=== PATIENT | female | born 1955 | race African-American/Black ===

== ENCOUNTER 2016-09-02 21:29 | Inpatient (IN) ==
[2016-09-02] MEDS ORDERED: hydrALAZINE 20 MG/1 ML VIAL ONE (22:17)
[2016-09-02] MEDS ORDERED: MORPHINE 2 MG/1 ML SYRINGE IV STA (22:21)
[2016-09-02] MEDS ORDERED: ASPIRIN 325 MG TABLET PO STA (22:21)
[2016-09-02] MEDS ORDERED: ONDANSETRON 4 MG/2 ML VIAL IV STA (22:21)
[2016-09-02] MEDS ORDERED: hydrALAZINE 20 MG/1 ML VIAL IV STA (22:25)
--- NOTE | 2016-09-02 22:26 | Emergency Department Note ---
IRyan Kasabria, am scribing for, and in the presence of, Juana Ceballos DO 22 :21. ITucker Debra, DO, personally performed the services described in this documentation, ascribed by Josephine Davis in my presence, and it is both accurate and complete 225 . Arrival - Arrival Chief Complaint: Chest Pain Stated Complaint: chest pain ED Nursing Triage Note: c/o left sided cp that hurts from her shoulder down to her knee. denies n/v, diaphoretic in triage, says she is sob at rest and exertion. Mode of Arrival: Ambulatory Limitations: No Limitations Source: Patient Time Seen by Provider: 09/02/16 21:47 - History of Present Illness HPI Narrative: This is a 61 y/o black female presenting to the ED with c/o chest pain, right shoulder pain that radiates down to her knees. She has some SOB but denies nausea, vomiting, diaphoresis, abdominal pain, back pain, and dysuria. Pt has a hernia to her right upper quadrant. Pt's blood pressure is elevated but she denies checking her pressure and states she has been out of her blood pressure medication for some time. She goes to [facility]. Pt has a cough and has not taken any OTC medications. Her PMHx consist of diabetes and HTN. Consistency: constant Severity: mild Allergies/Adverse Reactions: Allergies Allergy/AdvReac Type Severity Reaction Status Date / Time No Known Allergies Allergy Unverified 09/03/16 00:07 Review of System - Review of System 12 point system: reviewed and no additional remarkable complaints except as stated - Review of System Constitutional: Absent: chills, fever, weakness Eyes: Absent: vision change Head/Ears/Nose/Throat: Absent: earache, nasal drainage Respiratory: Present: cough. Absent: wheezing Cardiovascular: Present: chest pain, dyspnea on exertion Gastrointestinal: Absent: abdominal pain, nausea, vomiting, diarrhea Genitourinary female: Absent: dysuria Musculoskeletal: Absent: arm pain, back pain Skin: Absent: rash Neurological: Absent: headache, weakness, confusion, vertigo Psychiatric: Absent: anxiety Endocrine: Absent: fatigue Allergic/Immunologic: Absent: facial swelling Medical,Surgical,& Family Hx - Medical History Cardio: History of: Hypertension Endocrine: History of: Diabetes Mellitus (IDDM) - Social History Smoking Status: Never smoker Frequency of Alcohol Use: None Type of Drug Use: None Exam Vital Signs: Vital Signs Temperature 97.3 F L 09/02/16 21:48 Pulse Rate 93 H 09/02/16 21:48 Respiratory Rate 20 09/02/16 21:48 Blood Pressure 236/88 09/02/16 21:48 O2 Sat by Pulse Oximetry 94 L 09/02/16 21:33 - General General appearance: alert, in no apparent distress, obese - Head Head exam: Present: atraumatic, normocephalic, normal inspection - Eye Eye exam: Present: normal appearance, PERRL, EOMI - ENT ENT exam: Present: normal exam, normal oropharynx, mucous membranes moist, TM's normal bilaterally, normal external ear exam - Neck Neck exam: Present: normal inspection, full ROM, trachea midline. Absent: tenderness - Chest Chest inspection: Present: normal inspection, symmetric chest wall rise. Absent : tenderness - Respiratory Respiratory exam: Present: rales (bilaterally ). Absent: normal lung sounds bilaterally - Cardiovascular Cardiovascular exam: Present: regular rate, normal rhythm, normal heart sounds - Abdominal Exam Abdominal exam: Present: soft, normal bowel sounds, hernia (midline; easily reducible ). Absent: distention, tenderness - Extremities Exam Extremities exam: Present: full ROM, normal capillary refill, pedal edema (+1). Absent: tenderness, calf tenderness - Back Exam Back exam: Present: normal inspection, full ROM. Absent: tenderness - Neurological Exam Neurological exam: Present: alert, oriented X3, CN II-XII intact, normal gait, reflexes normal - Psychiatric Psychiatric exam: Present: normal affect, normal mood - Skin Skin exam: Present: warm, dry, intact, normal color. Absent: diaphoresis Course Course Narrative: spoke with DR Nuñez who will admit pt Results - Labs CBC & BMP: 09/02/16 21:56 09/02/16 21:56 Disposition Clinical Impression: Atypical chest pain, CHF (congestive heart failure) Case discussed with: patient, patient's family Disposition: Still a Patient Condition: Stable Time of Disposition: 01:22
--- NOTE | 2016-09-02 22:27 | EKG Report ---
Stationary ECG Study [facility] ER Test Date: 09/02/2016 9:43:48 PM Pat Name: ALIZA GARRIDO Department: Room: Gender: F Science Professor: Aquiles : 1955 Requested by: Juana Ceballos Order Number: [id number] Reading MD: ANDRE VELASQUEZ Intervals [place] Rate: 85 P: 74 NM: 166 QRS: 45 QRSD: 92 T: 90 QT: 371 QTc: 413 Interpretive Statements SINUS RHYTHM LEFT ATRIAL ABNORMALITY Electronically Signed On 09-04-16 18:50:29 CDT by ANDRE VELASQUEZ [email or web address]
[2016-09-02] MEDS ORDERED: ONDANSETRON 4 MG/2 ML VIAL ONE (22:33)
[2016-09-02] MEDS ORDERED: MORPHINE 2 MG/1 ML SYRINGE ONE (22:33)
[2016-09-02] MEDS ORDERED: ASPIRIN 325 MG TABLET ONE (22:33)
--- NOTE | 2016-09-02 22:38 | XRay Report ---
XR chest 1V portable Indication: Chest pain Comparison: None Technique: Single frontal view of the chest Findings: Moderate cardiomegaly. Hazy opacification within the bilateral lower lungs may reflect early consolidative process such as pulmonary edema or pneumonia. Small bilateral pleural fluid suspected. Osseous and surrounding soft tissue structures demonstrate no acute abnormality. IMPRESSION: As above. PROCEDURE INTERPRETED AT [facility] DEPARTMENT OF RADIOLOGY Final Report Signed by: Dr Jaylen Fontanez
[2016-09-02 22:42] LABS: Basophils % 0.2 % (0.0-0.8); Eosinophils # 0.1 10*3/uL (0.0-0.87); Eosinophils % 0.7 % (0.00-10.9); Hemoglobin 12.3 GM/DL (12.0-16.0); Immature Granulocytes % 0.4 %; Immature Granulocytes Absolute 0.03 #; Lymphocytes # 2.6 10*3/uL (1.4-4.0); Lymphocytes % 32.2 % (21.3-54.2); Mean Corpuscular HGB Conc 32.4 GM/DL (32-36); Mean Corpuscular Hemoglobin 30 PG (27-34); Mean Corpuscular Volume 92.2 FL (87-102); Monocytes # 0.4 10*3/uL (0.11-0.8); Monocytes % 4.6 % (1.7-12.7); Neutrophils # 5.1 10*3/uL (1.4-7.4); Neutrophils % 61.9 % (38.7-73.9); Platelet Count 220 T/CUMM (130-400); Red Blood Count 4.12 MC/CUMM (3.8-5.5); Red Cell Distribution Width 14.3 % (9.3-17.3); White Blood Count 8.2 T/CUMM (4-12)
[2016-09-02 22:47] LABS: PT Patient Result 10.3 SECS; Partial Thromboplastin Time 29.1 SECS (0-40)
[2016-09-02 22:56] LABS: Alanine Aminotransferase 19 U/L (13-56); Albumin 3.2 G/DL (3.4-5.0); Alkaline Phosphatase 93 U/L (45-117); Aspartate Amino Transferase 16 U/L (0-37); Bilirubin,Total < 0.39 MG/DL (0.2-1.0); Blood Urea Nitrogen 18 MG/DL (7-18); Calcium 9.2 MG/DL (8.5-10.1); Glucose 199 MG/DL (74-106); Osmolality,Calculated 297.6 MOS/KG (273-304); Potassium 3.7 MMOL/L (3.5-5.1); Sodium 146 MMOL/L (136-145); Total Protein 7.1 G/DL (6.4-8.3)
[2016-09-02] MEDS ORDERED: cloNIDine 0.1 MG TABLET PO STA (23:11)
[2016-09-02] MEDS ORDERED: cloNIDine 0.1 MG TABLET ONE (23:13)
[2016-09-02] MEDS ORDERED: FUROSEMIDE 40 MG/4 ML VIAL IV STA (23:33)
[2016-09-02] MEDS ORDERED: FUROSEMIDE 100 MG/10 ML VIAL ONE (23:44)
[2016-09-03] MEDS ORDERED: hydrALAZINE 20 MG/1 ML VIAL ONE (00:09)
[2016-09-03] MEDS ORDERED: hydrALAZINE 20 MG/1 ML VIAL IV STA (00:15)
[2016-09-03 00:45] LABS: Apearance,Urine CLEAR (Clear); Bilirubin,Urine Negative (Negative); Blood, Urine Negative (Negative); Glucose,Urine (UA) Negative (Negative); Ketones,Urine Negative (Negative); Nitrite,Urine Negative (Negative); Protein,Urine Negative; RBC,Urine <1 /HPF (0-4); Squamous Epithelial Cell,Urine Occasional /HPF (0-10); Urine Color Colorless (Yellow); Urine Specific Gravity 1.003 (1.001-1.035); Urine Urobilinogen < 2.0 EU/DL (0.2-1.0); WBC,Urine <1 /HPF (0-6)
[2016-09-03] MEDS ORDERED: ACETAMINOPHEN 325 MG TABLET PO PRN (00:49)
[2016-09-03] MEDS ORDERED: hydrALAZINE 20 MG/1 ML VIAL IV PRN (00:49)
[2016-09-03] MEDS ORDERED: ONDANSETRON 4 MG/2 ML VIAL IV PRN (00:49)
--- NOTE | 2016-09-03 02:06 | Hospitalist History & Physical ---
Assessment and Plan (1) Pulmonary edema Status: Acute Assessment and plan: Admitted to telemetry Serial cardiac enzymes Start Lasix and Aldactone Resume blood pressure medications Consider cardiology consult Follow-up echocardiogram Current Visit: Yes Qualifiers: Chronicity: acute Qualified Code(s): J81.0 - Acute pulmonary edema (2) Uncontrolled hypertension Status: Acute Assessment and plan: Patient has been noncompliant with home medications. She is unable to name what meds she was supposed to be on. Given her history of diabetes have started her on Diovan with hydrochlorothiazide. Hydralazine is ordered as needed. 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 Kerr is a 61 year old female presenting to the ED with c/o chest pain, right shoulder pain that radiates down to her knees. She has some SOB but denies nausea, vomiting, diaphoresis, abdominal pain, back pain, and dysuria. Symptoms began Tuesday morning. It occurs at rest and is waxing and waning. Rated a 6-7 out of 10 in intensity. Pt's blood pressure is elevated but she denies checking her pressure and states she has been out of her blood pressure medication for some time- approx 2 months. She goes to [facility]. Her PMHx consist of diabetes and HTN. She quit smoking 2 months ago. Allergies Allergy/AdvReac Type Severity Reaction Status Date / Time No Known Allergies Allergy Unverified 09/03/16 00:07 Medical,Surgical,& Family Hx - Medical History Cardio: History of: Hypertension Endocrine: History of: Diabetes Mellitus (IDDM) - Family History Family History: Reports;: Family Diabetes, Family Hypertension - Social History Smoking Status: Former smoker Have you smoked in the last 12 months: No Frequency of Alcohol Use: None Type of Drug Use: None Marital Status: Single Lives With:: Alone Functional capacity: independent ambulation 12 point system: reviewed and no additional remarkable complaints except as stated - Constitutional Constitutional: Present: as per HPI - Cardiovascular Cardiovascular: Present: chest pain at rest, orthopnea, PND - Respiratory Respiratory: Present: cough, dyspnea Exam - Constitutional Vitals: Period Temp Pulse Resp BP Sys/Moore Pulse Ox Last 24 Hr 82 19 151/89 100 Exam: Constitutional System: Mild distress. No tremulousness. Head: Normocephalic, atraumatic. Ears, Nose and Throat System: No pain or tenderness. No epistaxis or discharge Eyes System: Pupils equal, round, and reactive. Extraocular muscles intact. Neck: Supple, without adenopathy, No jugular venous distention. No thyromegaly, neck mass, or prior surgery apparent. Respiratory System: Chest clear to auscultation. Cardiovascular System: Heart with regular rate and rhythm. No murmur. GI System: Abdomen soft, nontender. Normo active bowel sounds present. Ventral hernia noted without incarceration. Musculoskeletal System: limbs with mild pitting edema. Full distal pulses. Neurological System: No discernable sensory deficit. No aphasia Psychiatric System: Conversation is rational Results - Labs CBC & BMP: 09/02/16 21:56 09/02/16 21:56 Lab Results: I have reviewed the past 24 hour labs - Diagnostic Findings Procedure: Chest x-ray: image reviewed by me, report reviewed by me
[2016-09-03] MEDS ORDERED: GLUCAGON 1 MG VIAL IM PRN (02:10)
[2016-09-03] MEDS ORDERED: DEXTROSE 50% 25 GM/50 ML VIAL IV PRN (02:10)
[2016-09-03] MEDS: METOPROLOL TARTRATE 25 MG TABLET PO SCH ×3 (03:01→21:05)
[2016-09-03 05:14] LABS: Free T4 (Free Thyroxine) 1.18 NG/DL (0.76-1.46); Risk Ratio 5.83; Thyroid Stimulating Hormone 1.92 uIU/ml (0.358-3.74)
[2016-09-03 05:18] LABS: Troponin I Only 0.048 NG/ML (0.00-0.045)
[2016-09-03 07:34] LABS: Troponin I Only 0.042 NG/ML (0.00-0.045)
--- NOTE | 2016-09-03 09:42 | Cardiology Consult Note ---
Assessment and Plan - Time spent with patient Time spent with patient: Greater than 30 minutes (due to assessment, plan, and documentation) Time spent discussing smoking cessation with patient: 3 to 10 minutes (1) Atypical chest pain Status: Acute Assessment and plan: She has had flat troponins and normal EKG. She has some typical and some atypical symptoms of angina, however she has multiple risk factors for coronary artery disease. Will discuss with Dr. Barajas. Patient will need risk factor stratification. Further recommendations to follow by Dr. Barajas. Current Visit: Yes (2) Uncontrolled hypertension Status: Chronic Assessment and plan: Better controlled today but still suboptimal. On admission BP was 236/88. This morning her BP was 140/67. She has been started on Diovan HCT 160mg/12.5mg PO daily as well as Metoprolol 25mg PO BID. We will continue this current regimen, however she may require additional adjustments to further optimize her blood pressure. Current Visit: Yes (3) Pulmonary edema Status: Acute Assessment and plan: Chest x-ray yesterday consistent with pulmonary edema. She is receiving Lasix 40mg IV BID, Aldactone 12.5mg PO BID. Currently breathing comfortably and is on O2 via NBP. Current Visit: Yes Qualifiers: Chronicity: acute Qualified Code(s): J81.0 - Acute pulmonary edema (4) Dyslipidemia Status: Acute Assessment and plan: Ms. Kerr denies a past history of high cholesterol, however on admission her triglycerides were found to be 295, cholesterol 274, LDL 179, HDL 47. We will start Ms. Kerr on a daily statin and fish oil BID. Current Visit: Yes (5) DM2 (diabetes mellitus, type 2) Status: Chronic Assessment and plan: She is currently on sliding scale insulin. Hospital medicine following. Current Visit: Yes Qualifiers: Diabetes mellitus complication status: without complication Diabetes mellitus usp insulin use: with usp use Qualified Code(s): E11.9 - Type 2 diabetes mellitus without complications; Z79.4 - senior living (current) use of insulin (6) Noncompliance Status: Chronic Assessment and plan: Has been out of medications x 2 months. Current Visit: Yes (7) Former smoker Status: Chronic Assessment and plan: Quit 2 months ago. Current Visit: Yes (8) Obesity Status: Chronic Current Visit: Yes (9) Sedentary lifestyle Status: Chronic Current Visit: Yes History of Present Illness - Data of Consult Patient: new to practice Consult date: 09/03/16 Requesting Physician: James Sheriff - Consult Narrative Reason for consult: atypical CP, uncontrolled HTN History of present illness: Ms. Kerr is a 61 year old female who has never seen a public affairs director. She reports she has no PCP, she just goes to a walk in clinic in [place], [place]. her home medicines are not listed. She does not know what she takes and did not bring the bottles but she has been out of her medicines for the last 2 months. She is noncompliant. She has a history of hypertension, diabetes, former smoker, noncompliance, umbilical hernia. She has risk factors significant for: Hypertension, diabetes, dyslipidemia, former smoker, obesity, sedentary lifestyle. She tells me she quit smoking 2 months ago but smoked approximately 1 pack per day for 40 years. Her mother and sister have a history of hypertension. To her knowledge, no one in her family has a history of heart disease or prior cardiac stents or CABG. She presented to the emergency room last night with complaints of shortness of breath, left-sided chest pain, and pain from her left shoulder down her arm and down her left leg to her knee. She describes this pain in her left side as a burning sensation. Her left chest wall and left arm pain is nonreproducible. She reports her left thigh feels like "it has fever in it." Her left leg is very tender to palpation. She tells me all of this began Tuesday morning when she awoke with shortness of breath. She also reports a tightness and squeezing sensation across her upper abdomen and is mildly tender upon palpation of her upper abdomen, especially the epigastric region. She tells me she is also has some bilateral lower extremity edema within the last week. She reports prior to this she has experienced no chest pain on exertion but does report dyspnea on exertion for the last 6 months. She also reports having frequent constipation and headaches recently. An echocardiogram has been ordered. Her BNP on admission was 294. She has had flat troponins. Creatinine is 1.1. Lipid panel revealed triglycerides 295, cholesterol 274, LDL 179, HDL 47. Her potassium was 3.7 and TSH was normal. EKG showed normal sinus rhythm. Dr. Barajas to follow with further recommendations. CC: Caridad Chaudhary MD - Home Medications and Allergies Allergies/Adverse Reactions: Allergies Allergy/AdvReac Type Severity Reaction Status Date / Time No Known Allergies Allergy Unverified 09/03/16 00:07 Review of systems: - Constitutional: Present: fatigue, As per HPI. Absent: anorexia, chills, daytime sleepiness, excessive sweating, fever(s), frequent falls, headache(s), increased appetite, lethargy, malaise, night sweats, stops breathing during sleep, weakness, weight gain, weight loss. - EENT Eyes: Present: Left eye cataract and decreased vision in left eye. As per HPI. Absent: blurry vision, diplopia, loss of vision Ears: Present: As per HPI. Absent: decreased hearing, ear discharge, ear pain Nose, mouth and throat: Present: As per HPI. Absent: dysphagia, epistaxis, headache(s), hoarseness, lip swelling, nasal congestion, neck mass, neck pain, sinus pressure, sore throat, throat swelling, tongue swelling, vertigo - Cardiovascular: Present: chest pain at rest, dyspnea, dyspnea on exertion, edema, radiating jaw, neck or arm pain, as per HPI. Absent: chest pain with activity, claudication, diaphoresis, lightheadedness, orthopnea, palpitations, PND - Respiratory: Present: dyspnea, dyspnea on exertion, as per HPI. Absent: cough , hemoptysis, wheezing, snoring, pain on inspiration - Gastrointestinal: Present:abdominal pain, constipation, As per HPI. Absent: bloating, change in bowel habits, diarrhea, heartburn, hematemesis, hematochezia , loose stools, melena, nausea, vomiting - Genitourinary: Present: As per HPI. Absent: difficulty urinating, dysuria, flank pain, hematuria, nocturia, urinary frequency, urinary incontinence - Musculoskeletal: Present: Left leg pain as per HPI. Absent: arthralgias, back pain, joint swelling, limited range of motion, muscle cramps, muscle weakness, myalgias - Neurological: Present: paresthesias, As per HPI. Absent: abnormal gait, abnormal speech, behavioral changes, confusion, convulsions, disequilibrium, dizziness, focal weakness, frequent falls, headache(s), memory loss, numbness, radicular pain, syncope, tremor(s) - Psychiatric: Present: As per HPI. Absent: anxiety, confusion, depression, panic attacks - Endocrine: Present: As per HPI. Absent: cold intolerance, fatigue, heat intolerance, polydipsia, polyphagia - Hematologic/Lymphatic: Present: As per HPI. Absent: easy bleeding, easy bruising, lymphadenopathy Medical,Surgical,& Family Hx - Medical History Cardio: History of: Hypertension Endocrine: History of: Diabetes Mellitus (IDDM) Gastrointestinal: History of: GI Problems (Hernia) - Surgical History Cardiac Surgeries: Patient Denies: Cardiac Catheterization Thoracic Surgeries: Patient denies;: Lobectomy Neurologic Surgeries: Patient denies: Neurologic Surgery Reproductive Surgeries: Surgical HX of;: Section (In 1976 & 1977), Hysterectomy (In 2013) - Family History Family History: Reports;: Family Diabetes, Family Hypertension - Social History Smoking Status: Former smoker (Quit 2 months ago) Have you smoked in the last 12 months: Yes (Smoked approximately 1 pack per day for approximately 40 years) Time spent discussing smoking cessation with patient: 3 to 10 minutes Frequency of Alcohol Use: None Type of Drug Use: None Marital Status: Single Functional capacity: independent ambulation Physical Examination Vital Signs Temp Pulse Resp BP Pulse Ox 97.3 F L 93 H 20 236/88 94 L 09/02/16 21:33 09/02/16 21:33 09/02/16 21:33 09/02/16 21:33 09/02/16 21:33 Other: General: Present: Appears Well, No Apparent Distress. Pleasant and cooperative. Appears comfortable. HEENT: Present: PERRL, Normocephaly, atraumatic. Mucus Membranes Moist. No jaundice noted. Conjunctiva moist and clear, sclerae anicteric Neck: Present: Supple Neck, Midline Trachea, No Masses Cardiac: Present: Regular Rate and Rhythm, No Murmur Lungs: Present: Decreased breath sounds bilateral bases. Neuro: Present: Awake, alert, and oriented x3. Moves all extremities well without hemiparesis or paralysis. Grossly Intact. Absent: Resting Tremor, Essential Tremor Abdomen: Present: Soft, Active Bowel Sounds, No Masses, tenderness to the right upper, left upper, and epigastric region of the abdomen, nondistended. No abdominal bruit or thrill noted. Skin: Present: Clear. Absent: Rash, No skin breakdown. Musculoskeletal: Present: No Fluid Collection, No Pain, Normal Range of Motion Extremities: Present: Normal Gait, No Clubbing, No Cyanosis, Upper Extr. Pulses 2+, Lower Extr. Pulses 2+, 1+ pitting edema. Capillary refill less than 3 seconds. Result/EKG - Labs CBC & BMP: 09/02/16 21:56 09/02/16 21:56 Lab Results: I have reviewed the past 24 hour labs Labs: Laboratory Results - last 24 hr 09/03/16 09/03/16 09/03/16 03:34 03:34 06:35 POC Glucose Total Creatine Kinase 132 157 CK-MB (CK-2) 1.6 1.8 Troponin I 0.048 H D 0.042 Triglycerides 295 H Cholesterol 274 H LDL Cholesterol 179.0 VLDL Cholesterol 59.0 HDL Cholesterol 47 Heart Disease Risk Ratio 5.83 Free T4 1.18 TSH 3rd Generation 1.920 09/03/16 07:47 POC Glucose 165 H Total Creatine Kinase CK-MB (CK-2) Troponin I Triglycerides Cholesterol LDL Cholesterol VLDL Cholesterol HDL Cholesterol Heart Disease Risk Ratio Free T4 TSH 3rd Generation - EKG EKG results: interpreted by me, sinus rhythm
[2016-09-03] MEDS: INSULIN LISPRO 100 UNIT/ML SUBCUT SCH ×4 (14:11→21:06)
[2016-09-03] MEDS: FUROSEMIDE 40 MG/4 ML VIAL IV SCH ×2 (14:12→17:11)
[2016-09-03] MEDS: SPIRONOLACTONE 25 MG TABLET PO SCH ×2 (14:13→21:03)
[2016-09-03] MEDS: VALSARTAN/HCTZ 160-12.5 MG TABLET PO SCH (14:13)
[2016-09-03] MEDS: ENOXAPARIN 40 MG/0.4 ML SYRINGE SUBCUT SCH (14:14)
[2016-09-03] MEDS: OMEGA 3 ACID ETHYL ESTERS 1 GM CAPSULE PO SCH ×2 (14:14→21:04)
[2016-09-03] MEDS: ACETAMINOPHEN 325 MG TABLET PO SCH ×2 (14:14→21:04)
[2016-09-03] MEDS: PANTOPRAZOLE 40 MG TABLET PO SCH (14:14)
[2016-09-03] MEDS: traMADol 50 MG TABLET PO SCH ×2 (14:15→21:04)
[2016-09-03] MEDS: GABAPENTIN 100 MG CAPSULE PO SCH ×2 (14:16→21:05)
--- NOTE | 2016-09-03 14:34 | ECHO Report ---
Erlinda Kerr Exam Date: 09/03/2016 09:28 Referring Physician: Technologist: Sugey Baptiste RDCS Age: 61 Ht (in): 62 Wt (lb): 220 Gender: F Exam Location: [facility] Echo Indications: Acute pulmonary edema, Chest pain, unspecified, Essential (primary) hypertension, Shortness of breath, IDDM BP: 140 / 67 HR: 80 Rhythm: Sinus Technical Quality: Good IMPRESSIONS Severe left ventricular hypertrophy. Left ventricular ejection fraction is estimated at 50-60%. The right atrium is mildly enlarged. Moderately increased left atrial size. Mild mitral valve regurgitation. Aortic valve sclerosis without stenosis or regurgitation. Trace to mild tricuspid valve regurgitation. Tricuspid regurgitation velocities suggest a PAP of 49 mmHg. Mild pulmonary valve regurgitation. Normal pericardium, trvial pericardial effusion. MEASUREMENTS (Male / Female) Normal Values 2D ECHO LV Diastolic Diameter PLAX 4.7 cm 4.2 - 5.9 / 3.9 - 5.3 cm LV Systolic Diameter PLAX 3.5 cm LV Fractional Shortening PLAX 26.9 % IVS Diastolic Thickness 1.9 cm 0.6 - 1.0 / 0.6 - 0.9 cm LVPW Diastolic Thickness 1.9 cm 0.6 - 1.0 / 0.6 - 0.9 cm RV Internal Dim ED PLAX 2.7 cm Aortic Root Diameter 3.2 cm LA Systolic Diameter LX 5.2 cm 3.0 - 4.0 / 2.7 - 3.8 cm DOPPLER TR Peak Velocity 312.0 cm/s TR Peak Gradient 38.9 mmHg FINDINGS Left Ventricle Normal left ventricular cavity size. Severe left ventricular hypertrophy. Left ventricular ejection fraction is estimated at 50-60%. Right Ventricle The right ventricle is normal in size and function. Right Atrium The right atrium is mildly enlarged. Left Atrium Moderately increased left atrial size. Mitral Valve Morphologically normal mitral valve. Mild mitral valve regurgitation. Aortic Valve Aortic valve sclerosis without stenosis or regurgitation. Tricuspid Valve Morphologically normal tricuspid valve. Trace to mild tricuspid valve regurgitation. Tricuspid regurgitation velocities suggest a PAP of 49 mmHg. Pulmonic Valve Morphologically normal pulmonic valve. Mild pulmonary valve regurgitation. Pericardium Normal pericardium, trvial pericardial effusion Aorta Normal ascending aorta dimension. Javier Barajas MD (Electronically Signed) Final Date: 03 September 2016 14:33
[2016-09-03] MEDS: ZALEPLON 5 MG CAPSULE PO PRN (21:04)
[2016-09-03] MEDS: PRAVASTATIN 40 MG TABLET PO SCH (21:04)
[2016-09-04] MEDS: VALSARTAN/HCTZ 160-12.5 MG TABLET PO SCH (08:22)
[2016-09-04] MEDS: OMEGA 3 ACID ETHYL ESTERS 1 GM CAPSULE PO SCH ×2 (08:22→21:14)
[2016-09-04] MEDS: PANTOPRAZOLE 40 MG TABLET PO SCH (08:22)
[2016-09-04] MEDS: SPIRONOLACTONE 25 MG TABLET PO SCH ×2 (08:23→21:15)
[2016-09-04] MEDS: GABAPENTIN 100 MG CAPSULE PO SCH ×3 (08:23→21:16)
[2016-09-04] MEDS: METOPROLOL TARTRATE 25 MG TABLET PO SCH (08:23)
[2016-09-04] MEDS: ASPIRIN CHEW 81 MG TABLET PO SCH (08:24)
[2016-09-04] MEDS: ACETAMINOPHEN 325 MG TABLET PO SCH ×2 (08:24→21:14)
[2016-09-04] MEDS: traMADol 50 MG TABLET PO SCH ×2 (08:24→21:15)
[2016-09-04] MEDS: FUROSEMIDE 40 MG/4 ML VIAL IV SCH ×2 (08:28→17:15)
[2016-09-04] MEDS: INSULIN LISPRO 100 UNIT/ML SUBCUT SCH ×4 (08:30→21:16)
--- NOTE | 2016-09-04 14:10 | Cardiology Progress Note ---
Assessment and Plan (1) Diastolic heart failure Status: Acute Assessment and plan: Plan/recommendation: The patient's diastolic heart failure is better. The echo revealed 3+ LVH and normal left ventricular ejection fraction. Her blood pressures not quite to goal. Will switch the metoprolol to carvedilol 12.5 mg p.o. twice daily and add amlodipine 5 mg p.o. daily. Hopefully can get her blood pressure control. Her cardiac isoenzymes are negative so I doubt that her left chest pain is ACS. It probably is chest wall pain are related to hypertensive cardiovascular disease. Her left leg pain is of unknown etiology. Once she is out/discharged, she could get a stress test with Cardiolite, Outpatient at [facility]. The above was discussed with the patient. She voiced understanding and agrees with the plan. Current Visit: Yes (2) Hypertensive heart disease Status: Acute Current Visit: Yes (3) Suspected sleep apnea Status: Acute Current Visit: Yes (4) Atypical chest pain Status: Acute Current Visit: Yes (5) Dyslipidemia Status: Acute Current Visit: Yes (6) Pulmonary edema Status: Acute Current Visit: Yes Qualifiers: Chronicity: acute Qualified Code(s): J81.0 - Acute pulmonary edema (7) DM2 (diabetes mellitus, type 2) Status: Chronic Current Visit: Yes Qualifiers: Diabetes mellitus complication status: without complication Diabetes mellitus skilled nursing insulin use: with skilled nursing use Qualified Code(s): E11.9 - Type 2 diabetes mellitus without complications; Z79.4 - retirement (current) use of insulin (8) Former smoker Status: Chronic Current Visit: Yes (9) Noncompliance Status: Chronic Current Visit: Yes (10) Obesity Status: Chronic Current Visit: Yes (11) Sedentary lifestyle Status: Chronic Current Visit: Yes (12) Uncontrolled hypertension Status: Chronic Current Visit: Yes Cardiology - PN: Subj Interval history: No chest pain. Less shortness of breath. Left leg still has some pain, but is better. Exam (Progress Note) - Constitutional Vitals: Period Temp Pulse Resp BP Sys/Moore Pulse Ox Last 24 Hr 96.8 F-99 F 62-80 16-22 133-179/63-125 89-100 Exam: HEENT: Pupils equal, reactive to light and accommodation Neck: NoJVD or bruit Lungs clear to auscultation Heart: Regular rhythm rate with normal S1 and S2. Apical S4, 1/6 systolic ejection murmur along left lower sternal border. Abdomen: No hepatosplenomegaly Spine/extremities: No clubbing, cyanosis, or edema Neuro: Nonfocal Psych: No depression or anxiety Less left chest wall pain Result/EKG - Labs CBC & BMP: 09/02/16 21:56 09/02/16 21:56 Lab Results: I have reviewed the past 24 hour labs Labs: Laboratory Results - last 24 hr 09/03/16 09/03/16 09/04/16 15:37 20:18 07:13 POC Glucose 259 H 207 H 201 H 09/04/16 11:44 POC Glucose 172 H - EKG EKG results: interpreted by me Quality Measures - VTE Deep Vein Thrombosis/Pulmonary Embolism Present on Admission: No Specialty Discharge - Follow Up or Referrals Follow up with: [facility] [Other] (In about 3-6 weeks, to follow-up on treatment of hypertensive heart disease, hypertension, multiple risk factors) Javier Barajas MD [Physician] - (No scheduled follow-up with me. can set up for an outpatient MPI/treadmill/possible Lexiscan to be done at [facility] outpatient in the next week or 2[ not at [facility]]. Kimberly Yancey, nurse practitioner, will supervise the treadmill. I will read the MPI.)
--- NOTE | 2016-09-04 14:32 | Hospitalist Progress Note ---
Assessment and Plan (1) Atypical chest pain Status: Acute Assessment and plan: Patient has multiple risk factors for CAD. Cardiac enzymes are negative so far. Plan Continue with serial cardiac enzymes Continue with current regime For out pt stress test D-dimer if positive-CT with PTE protocol Current Visit: Yes (2) DM2 (diabetes mellitus, type 2) Status: Chronic Assessment and plan: we will start Metformin 500mg bid, get HbA1c level and continue to monitor closely DM teaching Current Visit: Yes Qualifiers: Diabetes mellitus complication status: without complication Diabetes mellitus fdc insulin use: with fdc use Qualified Code(s): E11.9 - Type 2 diabetes mellitus without complications; Z79.4 - petroleum terminal plant operator (current) use of insulin (3) Uncontrolled hypertension Status: Chronic Assessment and plan: better controlled, continue to monitor Current Visit: Yes (4) Pulmonary edema Status: Acute Assessment and plan: Chest x-ray on 09/02 was consistent with pulmonary edema.Continue with diuretics , repeat CXR in am. Current Visit: Yes Qualifiers: Chronicity: acute Qualified Code(s): J81.0 - Acute pulmonary edema (5) Dyslipidemia Status: Acute Assessment and plan: continue with statin and fish oil Current Visit: Yes (6) Noncompliance Status: Chronic Assessment and plan: Has been out of medications x 2 months. 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 She currently denies a history of chest pain, SOB, tightness. Exam - Constitutional Vitals: Period Temp Pulse Resp BP Sys/Moore Pulse Ox Last 24 Hr 96.8 F-99 F 62-80 16-22 133-179/63-125 89-100 General appearance: no acute distress, over weight - Head Head exam: Present: normal inspection - Respiratory Respiratory exam: Present: clear to auscultation bilaterally - Cardiovascular Cardiovascular exam: Present: regular rate and rhythm - GI/Abdominal GI/Abdominal exam: Present: normal bowel sounds - Extremities Exam Extremities exam: Present: normal inspection Results - Labs CBC & BMP: 09/02/16 21:56 09/02/16 21:56 Lab Results: I have reviewed the past 24 hour labs Quality Measures - VTE Deep Vein Thrombosis/Pulmonary Embolism Present on Admission: No Specialty Discharge - Follow Up or Referrals Follow up with: [facility] [Other] (In about 3-6 weeks, to follow-up on treatment of hypertensive heart disease, hypertension, multiple risk factors) Javier Barajas MD [Physician] - (No scheduled follow-up with me. can set up for an outpatient MPI/treadmill/possible Lexiscan to be done at [facility] outpatient in the next week or 2[ not at [facility]]. Kimberly Yancey, nurse practitioner, will supervise the treadmill. I will read the MPI.)
[2016-09-04] MEDS: amLODIPine 10 MG TABLET PO SCH (16:08)
[2016-09-04] MEDS: ENOXAPARIN 40 MG/0.4 ML SYRINGE SUBCUT SCH (16:09)
[2016-09-04] MEDS: metFORMIN 500 MG TABLET PO SCH (16:19)
[2016-09-04 16:31] LABS: Troponin I Only 0.033 NG/ML (0.00-0.045)
[2016-09-04] MEDS: CARVEDILOL 12.5 MG TABLET PO SCH (21:15)
[2016-09-04] MEDS: PRAVASTATIN 40 MG TABLET PO SCH (21:15)
[2016-09-04] MEDS: MORPHINE 2 MG/1 ML SYRINGE IV PRN (22:42)
[2016-09-04] MEDS: ZALEPLON 5 MG CAPSULE PO PRN (22:43)
[2016-09-05] MEDS: MORPHINE 2 MG/1 ML SYRINGE IV PRN (04:47)
[2016-09-05 05:27] LABS: Basophils % 0.1 % (0.0-0.8); Eosinophils # 0.1 10*3/uL (0.0-0.87); Eosinophils % 1.3 % (0.00-10.9); Hematocrit 34.4 VOL% (35.7-47.0); Hemoglobin 11.2 GM/DL (12.0-16.0); Immature Granulocytes % 0.4 %; Immature Granulocytes Absolute 0.03 #; Lymphocytes # 2.1 10*3/uL (1.4-4.0); Mean Corpuscular HGB Conc 32.6 GM/DL (32-36); Mean Corpuscular Hemoglobin 30 PG (27-34); Mean Corpuscular Volume 91.5 FL (87-102); Mean Platelet Volume 10.5 FL (9.6-12.0); Monocytes # 0.4 10*3/uL (0.11-0.8); Monocytes % 6.2 % (1.7-12.7); Neutrophils # 4.5 10*3/uL (1.4-7.4); Platelet Count 203 T/CUMM (130-400); Red Blood Count 3.76 MC/CUMM (3.8-5.5); White Blood Count 7.2 T/CUMM (4-12)
[2016-09-05 05:52] LABS: Calcium 8.9 MG/DL (8.5-10.1); Osmolality,Calculated 290.4 MOS/KG (273-304); Potassium 4.1 MMOL/L (3.5-5.1)
[2016-09-05] MEDS: GABAPENTIN 100 MG CAPSULE PO SCH ×3 (08:30→20:51)
[2016-09-05] MEDS: VALSARTAN/HCTZ 160-12.5 MG TABLET PO SCH (08:30)
[2016-09-05] MEDS: ASPIRIN CHEW 81 MG TABLET PO SCH (08:30)
[2016-09-05] MEDS: PANTOPRAZOLE 40 MG TABLET PO SCH (08:31)
[2016-09-05] MEDS: SPIRONOLACTONE 25 MG TABLET PO SCH ×2 (08:31→20:49)
[2016-09-05] MEDS: metFORMIN 500 MG TABLET PO SCH ×3 (08:31→17:12)
[2016-09-05] MEDS: amLODIPine 10 MG TABLET PO SCH (08:31)
[2016-09-05] MEDS: ACETAMINOPHEN 325 MG TABLET PO SCH ×2 (08:31→20:47)
[2016-09-05] MEDS: traMADol 50 MG TABLET PO SCH ×2 (08:31→20:47)
[2016-09-05] MEDS: FUROSEMIDE 40 MG/4 ML VIAL IV SCH ×2 (08:32→16:09)
[2016-09-05] MEDS: CARVEDILOL 12.5 MG TABLET PO SCH ×2 (08:32→20:50)
[2016-09-05] MEDS: INSULIN LISPRO 100 UNIT/ML SUBCUT SCH ×4 (08:32→20:51)
--- NOTE | 2016-09-05 08:36 | XRay Report ---
2 view chest. Indication: Shortness of breath. Pulmonary edema. Comparison: September 02, 2016. The heart is enlarged. There is left atrial enlargement. The pulmonary vasculature is prominent. The interstitial lung markings are prominent. There is increasing left basilar pleural effusion. Minimal pleural effusion may be present on the right as well. Development of areas of atelectasis in both midlung horowitz. Scoliosis and degenerative change involving the spinal column. Mild degenerative changes of each shoulder. Impression: New midlung atelectasis bilaterally. Increasing left-sided pleural effusion. Findings consistent with pulmonary edema. PROCEDURE INTERPRETED AT [facility] DEPARTMENT OF RADIOLOGY Final Report Signed by: Dr. Josefina Hoffman
[2016-09-05] MEDS: OMEGA 3 ACID ETHYL ESTERS 1 GM CAPSULE PO SCH ×2 (08:41→20:48)
[2016-09-05] MEDS ORDERED: FUROSEMIDE 20 MG/2 ML VIAL IV ONE (10:26)
--- NOTE | 2016-09-05 11:22 | Hospitalist Progress Note ---
Assessment and Plan (1) CHF (congestive heart failure) Status: Acute Assessment and plan: Chest x-ray this AM showed new mid-lung atelectasis bilaterally; increasing left sided pleural effusion, findings consistent with pulmonary edema. Will give an extra 20mg of Lasix today; obtain CMP, BNP, MG, PHOS, and CXR in AM. Current Visit: Yes (2) Atypical chest pain Status: Acute Assessment and plan: No complaints of chest pain and discomfort since admission. Seen per Cardiology ; outpatient stress after discharge. Current Visit: Yes Hospitalist: Subjective Interval history: Patient seen and examined. No significant overnight events. Exam - Constitutional Vitals: Period Temp Pulse Resp BP Sys/Moore Pulse Ox Last 24 Hr 96.0 F-98.6 F 60-75 16-63 126-183/52-109 90-100 General appearance: normal weight, no acute distress - Head Head exam: Present: normal inspection - Eye Eye exam: Present: EOMI Pupils: Present: JAMIE, normal accommodation - ENT ENT exam: Present: normal exam - Neck Neck exam: Present: normal inspection. Absent: lymphadenopathy, meningismus, tenderness, thyromegaly - Respiratory Respiratory exam: Present: decreased breath sounds. Absent: rales, rhonchi, stridor, wheezes - Cardiovascular Cardiovascular exam: Present: regular rate and rhythm. Absent: carotid bruit, diastolic murmur, gallop, JVD, rubs, systolic murmur - GI/Abdominal GI/Abdominal exam: Present: normal bowel sounds, soft. Absent: firm, guarding, mass, tenderness - Extremities Exam Extremities exam: Present: normal inspection, full ROM, edema (trace edema notedto bilateral lower extremties) - Back Exam Back exam: Present: normal inspection - Neurological Exam Neurological exam: Present: alert, oriented X3, CN II-XII intact - Psychiatric Psychiatric exam: Present: normal affect, normal mood - Skin Skin exam: Present: normal color, dry Results - Labs CBC & BMP: 09/05/16 05:02 09/05/16 05:02 Lab Results: I have reviewed the past 24 hour labs Quality Measures - VTE Deep Vein Thrombosis/Pulmonary Embolism Present on Admission: No Specialty Discharge - Follow Up or Referrals Follow up with: [facility], [facility] [Other] (In about 3-6 weeks, to follow-up on treatment of hypertensive heart disease, hypertension, multiple risk factors) Touchstone,Javier, MD [Physician] - (No scheduled follow-up with me. can set up for an outpatient MPI/treadmill/possible Lexiscan to be done at [facility] outpatient in the next week or 2[ not at [facility]]. Kimberly Yancey, nurse practitioner, will supervise the treadmill. I will read the MPI.)
[2016-09-05] MEDS ORDERED: ALUMINUM/MAGNES/SIMETH MAX STR 30 ML UDCUP PO PRN (13:56)
--- NOTE | 2016-09-05 14:15 | Cardiology Progress Note ---
Assessment and Plan (1) Diastolic heart failure Status: Acute Assessment and plan: Plan/recommendation: The patient's diastolic heart failure is better. The echo revealed 3+ LVH and normal left ventricular ejection fraction. Her blood pressures not quite to goal. Will switch the metoprolol to carvedilol 12.5 mg p.o. twice daily and add amlodipine 5 mg p.o. daily. Hopefully can get her blood pressure control. Her cardiac isoenzymes are negative so I doubt that her left chest pain is ACS. It probably is chest wall pain are related to hypertensive cardiovascular disease. Her left leg pain is of unknown etiology. Once she is out/discharged, she could get a stress test with Cardiolite, Outpatient at [facility]. The above was discussed with the patient. She voiced understanding and agrees with the plan. 09/05/16-assessment/plan/recommendation: No more chest pain. Her x-ray suggests more heart failure. Try more Lasix. Her creatinine is slightly elevated over baseline. Will watch out for cardiorenal syndrome. With normal ejection fraction probably has diastolic heart failure in addition to suspected/ untreated sleep apnea. Her hernia pain may be GI or otherwise. She seems to have labile blood pressure. It has been slightly better. Will make sure she is on a proton pump inhibitor. The epigastric pain is reproducible. Will recheck labs in a.m. Since she will be here tomorrow, we will go ahead and do a stress test with Cardiolite/Lexiscan in the a.m. Current Visit: Yes (2) Hypertensive heart disease Status: Acute Current Visit: Yes (3) Suspected sleep apnea Status: Acute Current Visit: Yes (4) Atypical chest pain Status: Acute Current Visit: Yes (5) Dyslipidemia Status: Acute Current Visit: Yes (6) Pulmonary edema Status: Acute Current Visit: Yes Qualifiers: Chronicity: acute Qualified Code(s): J81.0 - Acute pulmonary edema (7) DM2 (diabetes mellitus, type 2) Status: Chronic Current Visit: Yes Qualifiers: Diabetes mellitus complication status: without complication Diabetes mellitus fci insulin use: with fci use Qualified Code(s): E11.9 - Type 2 diabetes mellitus without complications; 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 Does continue to have left lower leg pain. Complains of pain in her epigastrium which she thinks is her hernia. Exam (Progress Note) - Constitutional Vitals: Period Temp Pulse Resp BP Sys/Moore Pulse Ox Last 24 Hr 96.0 F-98.6 F 59-75 16-63 126-183/52-109 90-100 Exam: HEENT: Pupils equal, reactive to light and accommodation Neck: NoJVD or bruit Lungs clear to auscultation Heart: Regular rhythm rate with normal S1 and S2. Apical S4, 1/6 systolic ejection murmur along left lower sternal border. Abdomen: No hepatosplenomegaly Spine/extremities: No clubbing, cyanosis, or edema Neuro: Nonfocal Psych: No depression or anxiety Less left chest wall pain Result/EKG - Labs CBC & BMP: 09/05/16 05:02 09/05/16 05:02 Lab Results: I have reviewed the past 24 hour labs Labs: Laboratory Results - last 24 hr 09/04/16 09/04/16 09/04/16 15:19 15:58 15:58 WBC RBC Hgb Hct MCV MCH MCHC RDW Plt Count MPV Neut % (Auto) Lymph % (Auto) [place] % (Auto) Eos % (Auto) Baso % (Auto) Neut # (Auto) Lymph # (Auto) [place] # (Auto) Eos # (Auto) Baso # (Auto) Immature Gran % Nucleated RBC % Immature Gran # Nucleated RBCs # D-Dimer, Quantitative Sodium Potassium Chloride Carbon Dioxide Anion Gap BUN Creatinine GFR Calculation BUN/Creatinine Ratio Glucose POC Glucose 274 H Hemoglobin A1c 9.9 H Calculated Osmolality Calcium Phosphorus Magnesium Total Creatine Kinase 181 CK-MB (CK-2) 1.4 Troponin I 0.033 09/04/16 09/04/16 09/05/16 15:58 19:14 04:59 WBC RBC Hgb Hct MCV MCH MCHC RDW Plt Count MPV Neut % (Auto) Lymph % (Auto) [place] % (Auto) Eos % (Auto) Baso % (Auto) Neut # (Auto) Lymph # (Auto) [place] # (Auto) Eos # (Auto) Baso # (Auto) Immature Gran % Nucleated RBC % Immature Gran # Nucleated RBCs # D-Dimer, Quantitative 1.0 Sodium Potassium Chloride Carbon Dioxide Anion Gap BUN Creatinine GFR Calculation BUN/Creatinine Ratio Glucose POC Glucose 207 H Hemoglobin A1c Calculated Osmolality Calcium Phosphorus Magnesium 2.0 Total Creatine Kinase CK-MB (CK-2) Troponin I 09/05/16 09/05/16 09/05/16 04:59 05:02 05:02 WBC 7.2 RBC 3.76 L Hgb 11.2 L Hct 34.4 L MCV 91.5 MCH 30 MCHC 32.6 RDW 14.0 Plt Count 203 MPV 10.5 Neut % (Auto) 63.0 Lymph % (Auto) 29.0 [place] % (Auto) 6.2 Eos % (Auto) 1.3 Baso % (Auto) 0.1 Neut # (Auto) 4.5 Lymph # (Auto) 2.1 [place] # (Auto) 0.4 Eos # (Auto) 0.1 Baso # (Auto) 0.0 Immature Gran % 0.4 Nucleated RBC % 0.0 Immature Gran # 0.03 Nucleated RBCs # 0.00 D-Dimer, Quantitative Sodium 140 Potassium 4.1 Chloride 99 Carbon Dioxide 33 H Anion Gap 12.1 BUN 29 H Creatinine 1.70 H GFR Calculation 43 BUN/Creatinine Ratio 17.00 Glucose 215 H POC Glucose Hemoglobin A1c Calculated Osmolality 290.4 Calcium 8.9 Phosphorus 3.3 Magnesium Total Creatine Kinase CK-MB (CK-2) Troponin I 09/05/16 09/05/16 08:06 11:44 WBC RBC Hgb Hct MCV MCH MCHC RDW Plt Count MPV Neut % (Auto) Lymph % (Auto) [place] % (Auto) Eos % (Auto) Baso % (Auto) Neut # (Auto) Lymph # (Auto) [place] # (Auto) Eos # (Auto) Baso # (Auto) Immature Gran % Nucleated RBC % Immature Gran # Nucleated RBCs # D-Dimer, Quantitative Sodium Potassium Chloride Carbon Dioxide Anion Gap BUN Creatinine GFR Calculation BUN/Creatinine Ratio Glucose POC Glucose 207 H 150 H Hemoglobin A1c Calculated Osmolality Calcium Phosphorus Magnesium Total Creatine Kinase CK-MB (CK-2) Troponin I Quality Measures - VTE Deep Vein Thrombosis/Pulmonary Embolism Present on Admission: No Specialty Discharge - Follow Up or Referrals Follow up with: [facility] [Other] (In about 3-6 weeks, to follow-up on treatment of hypertensive heart disease, hypertension, multiple risk factors) Javier Barajas MD [Physician] - (No scheduled follow-up with me. She will follow-up with her new PCP at the [facility].)
[2016-09-05] MEDS: ENOXAPARIN 40 MG/0.4 ML SYRINGE SUBCUT SCH (16:09)
--- NOTE | 2016-09-05 16:14 | Ultrasound Report ---
History is chest pain shortness of breath left leg pain Bilateral lower extremity venous Doppler performed with grayscale, spectral Doppler, and color flow analysis performed and interpreted. No evidence of echogenic, noncompressible thrombus seen in either common femoral, superficial femoral, popliteal, or saphenous veins Impression: No evidence of DVT seen in either lower extremity. PROCEDURE INTERPRETED AT [facility] DEPARTMENT OF RADIOLOGY Final Report Signed by: Dr. Kerrie Hoffman
[2016-09-05] MEDS: PRAVASTATIN 40 MG TABLET PO SCH (20:47)
[2016-09-05] MEDS: ZALEPLON 5 MG CAPSULE PO PRN (20:50)
[2016-09-06 05:30] LABS: Basophils % 0.3 % (0.0-0.8); Eosinophils # 0.1 10*3/uL (0.0-0.87); Eosinophils % 1.5 % (0.00-10.9); Hematocrit 35.5 VOL% (35.7-47.0); Hemoglobin 11.4 GM/DL (12.0-16.0); Immature Granulocytes % 0.3 %; Immature Granulocytes Absolute 0.02 #; Lymphocytes # 2.2 10*3/uL (1.4-4.0); Lymphocytes % 36.1 % (21.3-54.2); Mean Corpuscular HGB Conc 32.1 GM/DL (32-36); Mean Corpuscular Hemoglobin 30 PG (27-34); Mean Corpuscular Volume 92.9 FL (87-102); Mean Platelet Volume 10.9 FL (9.6-12.0); Monocytes # 0.5 10*3/uL (0.11-0.8); Monocytes % 7.8 % (1.7-12.7); Neutrophils # 3.2 10*3/uL (1.4-7.4); Platelet Count 204 T/CUMM (130-400); Red Blood Count 3.82 MC/CUMM (3.8-5.5); Red Cell Distribution Width 13.8 % (9.3-17.3)
[2016-09-06 05:51] LABS: Albumin 3.3 G/DL (3.4-5.0); Bilirubin,Total 0.8 MG/DL (0.2-1.0); Calcium 8.9 MG/DL (8.5-10.1); Magnesium 2.1 MG/DL (1.8-2.4); Osmolality,Calculated 294.1 MOS/KG (273-304); Phosphorous 3.7 MG/DL (2.5-4.9); Potassium 4.2 MMOL/L (3.5-5.1); Total Protein 6.9 G/DL (6.4-8.3)
--- NOTE | 2016-09-06 07:43 | Cardiology Progress Note ---
<Kimberly Yancey E - Last Filed: 09/06/16 08:36> Assessment and Plan - Time spent with patient Time spent with patient: Greater than 30 minutes (1) Atypical chest pain Status: Acute Assessment and plan: SEE PLAN OF CARE LISTED BELOW Current Visit: Yes (2) Diastolic heart failure Status: Acute Assessment and plan: SEE PLAN OF CARE LISTED BELOW Current Visit: Yes Qualifiers: Heart failure chronicity: acute Qualified Code(s): I50.31 - Acute diastolic (congestive) heart failure (3) Dyslipidemia Status: Chronic Assessment and plan: SEE PLAN OF CARE LISTED BELOW Current Visit: Yes (4) Hypertensive heart disease Status: Chronic Assessment and plan: SEE PLAN OF CARE LISTED BELOW Current Visit: Yes (5) Suspected sleep apnea Status: Chronic Assessment and plan: SEE PLAN OF CARE LISTED BELOW Current Visit: Yes (6) DM2 (diabetes mellitus, type 2) Status: Chronic Assessment and plan: SEE PLAN OF CARE LISTED BELOW Current Visit: Yes Qualifiers: Diabetes mellitus complication status: without complication 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 She had never seen a cardiolgoist prior to this hospitalization, Dr. Barajas was consulted. Blood pressure was uncontrolled and, over the weekend, this has improved. She did not have ACS. She was diagnosed with diastolic heart failure and has improved since admission. Echo revealed 3+ LVH, normal LVEF. She is NPO for stress testing this morning. ASSESSMENT/PLAN: 1. DIASTOLIC HEART FAILURE - acute, secondary to uncontrolled hypertension. Initially NYHA Class III, now Class II. On betablocker. Avoiding [place]-I for fera of worsening renal insufficiency. No daily weights recorded lately. 2. HYPERTENSION - improved with adjustments in medications 3. SUSPECTED SLEEP APNEA - will consult Sleep Medicine is not already consulted. 4. DYSLIPIDEMIA - continue lipid lowering agent 5. DIABETES - continue with sliding scale. 6. NONCOMPLIANCE - reinforced the merits of continued follow-up and medication adherence. 7. CHEST PAIN - no ACS. NPO for stress testing today Exam (Progress Note) - Constitutional Vitals: Period Temp Pulse Resp BP Sys/Moore Pulse Ox Last 24 Hr 97.1 F-98.7 F 57-75 16-20 81-183/48-92 90-99 General appearance: no acute distress, over weight - Head Head exam: Present: normocephalic, atraumatic - Eye Eye exam: Absent: periorbital swelling, laceration to eyelids Pupils: Present: JAMIE, normal accommodation - ENT ENT exam: Present: normal external ear exam, normal oropharynx (Class III Malampati Airway) - Neck Neck exam: Absent: lymphadenopathy, tenderness, thyromegaly - Respiratory Respiratory exam: Present: clear to auscultation bilaterally. Absent: accessory muscle use - Cardiovascular Cardiovascular exam: Present: regular rate and rhythm. Absent: JVD - GI/Abdominal GI/Abdominal exam: Present: normal bowel sounds, soft. Absent: tenderness - Extremities Exam Extremities exam: Absent: normal capillary refill, calf tenderness - Back Exam Back exam: Absent: CVA tenderness (L), CVA tenderness (R), muscle spasm - Neurological Exam Neurological exam: Present: alert, oriented X3. Absent: normal gait - Psychiatric Psychiatric exam: Present: normal affect, normal mood - Skin Skin exam: Present: warm, dry Result/EKG - Labs CBC & BMP: 09/06/16 04:57 09/06/16 04:57 Lab Results: I have reviewed the past 24 hour labs Labs: Laboratory Results - last 24 hr 09/05/16 09/05/16 09/05/16 04:59 04:59 08:06 WBC RBC Hgb Hct MCV MCH MCHC RDW Plt Count MPV Neut % (Auto) Lymph % (Auto) [place] % (Auto) Eos % (Auto) Baso % (Auto) Neut # (Auto) Lymph # (Auto) [place] # (Auto) Eos # (Auto) Baso # (Auto) Immature Gran % Nucleated RBC % Immature Gran # Nucleated RBCs # Sodium Potassium Chloride Carbon Dioxide Anion Gap BUN Creatinine GFR Calculation BUN/Creatinine Ratio Glucose POC Glucose 207 H Calculated Osmolality Calcium Phosphorus 3.3 Magnesium 2.0 Total Bilirubin AST ALT Alkaline Phosphatase B-Natriuretic Peptide Total Protein Albumin Globulin Albumin/Globulin Ratio 09/05/16 09/05/16 09/05/16 11:44 15:24 19:24 WBC RBC Hgb Hct MCV MCH MCHC RDW Plt Count MPV Neut % (Auto) Lymph % (Auto) [place] % (Auto) Eos % (Auto) Baso % (Auto) Neut # (Auto) Lymph # (Auto) [place] # (Auto) Eos # (Auto) Baso # (Auto) Immature Gran % Nucleated RBC % Immature Gran # Nucleated RBCs # Sodium Potassium Chloride Carbon Dioxide Anion Gap BUN Creatinine GFR Calculation BUN/Creatinine Ratio Glucose POC Glucose 150 H 204 H 223 H Calculated Osmolality Calcium Phosphorus Magnesium Total Bilirubin AST ALT Alkaline Phosphatase B-Natriuretic Peptide Total Protein Albumin Globulin Albumin/Globulin Ratio 09/06/16 09/06/16 09/06/16 04:57 04:57 04:57 WBC 6.0 RBC 3.82 Hgb 11.4 L Hct 35.5 L MCV 92.9 MCH 30 MCHC 32.1 RDW 13.8 Plt Count 204 MPV 10.9 Neut % (Auto) 54.0 Lymph % (Auto) 36.1 [place] % (Auto) 7.8 Eos % (Auto) 1.5 Baso % (Auto) 0.3 Neut # (Auto) 3.2 Lymph # (Auto) 2.2 [place] # (Auto) 0.5 Eos # (Auto) 0.1 Baso # (Auto) 0.0 Immature Gran % 0.3 Nucleated RBC % 0.0 Immature Gran # 0.02 Nucleated RBCs # 0.00 Sodium 142 Potassium 4.2 Chloride 101 Carbon Dioxide 34 H Anion Gap 11.2 BUN 33 H Creatinine 1.70 H GFR Calculation 43 BUN/Creatinine Ratio 19.00 Glucose 188 H POC Glucose Calculated Osmolality 294.1 Calcium 8.9 Phosphorus 3.7 Magnesium 2.1 Total Bilirubin 0.80 AST 10 ALT 18 Alkaline Phosphatase 86 B-Natriuretic Peptide 122 H Total Protein 6.9 Albumin 3.3 L Globulin 3.6 H Albumin/Globulin Ratio 0.9 L 09/06/16 07:14 WBC RBC Hgb Hct MCV MCH MCHC RDW Plt Count MPV Neut % (Auto) Lymph % (Auto) [place] % (Auto) Eos % (Auto) Baso % (Auto) Neut # (Auto) Lymph # (Auto) [place] # (Auto) Eos # (Auto) Baso # (Auto) Immature Gran % Nucleated RBC % Immature Gran # Nucleated RBCs # Sodium Potassium Chloride Carbon Dioxide Anion Gap BUN Creatinine GFR Calculation BUN/Creatinine Ratio Glucose POC Glucose 195 H Calculated Osmolality Calcium Phosphorus Magnesium Total Bilirubin AST ALT Alkaline Phosphatase B-Natriuretic Peptide Total Protein Albumin Globulin Albumin/Globulin Ratio - EKG EKG results: interpreted by me EKG shows: sinus rhythm Quality Measures - VTE Deep Vein Thrombosis/Pulmonary Embolism Present on Admission: No Specialty Discharge - Follow Up or Referrals Follow up with: [facility], [facility] [Other] (In about 3-6 weeks, to follow-up on treatment of hypertensive heart disease, hypertension, multiple risk factors) Javier Barajas MD [Physician] - (No scheduled follow-up with me. She will follow-up with her new PCP at the [facility].) <Addie Gillette - Last Filed: 09/06/16 16:19> Cardiology - PN: Subj Interval history: I have personally interviewed and evaluated the patient, reviewed the chart and discussed medical decision-making with Practitioner Naye. I have read this note and agree with her documentation here in. Exam (Progress Note) - Constitutional Vitals: Period Temp Pulse Resp BP Sys/Moore Pulse Ox Last 24 Hr 97.0 F-98.7 F 57-72 18-20 81-151/48-72 92-99 Result/EKG - Labs CBC & BMP: 09/06/16 04:57 09/06/16 04:57 Labs: Laboratory Results - last 24 hr 09/05/16 09/05/16 09/06/16 15:24 19:24 04:57 WBC RBC Hgb Hct MCV MCH MCHC RDW Plt Count MPV Neut % (Auto) Lymph % (Auto) [place] % (Auto) Eos % (Auto) Baso % (Auto) Neut # (Auto) Lymph # (Auto) [place] # (Auto) Eos # (Auto) Baso # (Auto) Immature Gran % Nucleated RBC % Immature Gran # Nucleated RBCs # Sodium Potassium Chloride Carbon Dioxide Anion Gap BUN Creatinine GFR Calculation BUN/Creatinine Ratio Glucose POC Glucose 204 H 223 H Calculated Osmolality Calcium Phosphorus Magnesium Total Bilirubin AST ALT Alkaline Phosphatase B-Natriuretic Peptide 122 H Total Protein Albumin Globulin Albumin/Globulin Ratio 09/06/16 09/06/16 09/06/16 04:57 04:57 07:14 WBC 6.0 RBC 3.82 Hgb 11.4 L Hct 35.5 L MCV 92.9 MCH 30 MCHC 32.1 RDW 13.8 Plt Count 204 MPV 10.9 Neut % (Auto) 54.0 Lymph % (Auto) 36.1 [place] % (Auto) 7.8 Eos % (Auto) 1.5 Baso % (Auto) 0.3 Neut # (Auto) 3.2 Lymph # (Auto) 2.2 [place] # (Auto) 0.5 Eos # (Auto) 0.1 Baso # (Auto) 0.0 Immature Gran % 0.3 Nucleated RBC % 0.0 Immature Gran # 0.02 Nucleated RBCs # 0.00 Sodium 142 Potassium 4.2 Chloride 101 Carbon Dioxide 34 H Anion Gap 11.2 BUN 33 H Creatinine 1.70 H GFR Calculation 43 BUN/Creatinine Ratio 19.00 Glucose 188 H POC Glucose 195 H Calculated Osmolality 294.1 Calcium 8.9 Phosphorus 3.7 Magnesium 2.1 Total Bilirubin 0.80 AST 10 ALT 18 Alkaline Phosphatase 86 B-Natriuretic Peptide Total Protein 6.9 Albumin 3.3 L Globulin 3.6 H Albumin/Globulin Ratio 0.9 L 09/06/16 09/06/16 10:54 15:26 WBC RBC Hgb Hct MCV MCH MCHC RDW Plt Count MPV Neut % (Auto) Lymph % (Auto) [place] % (Auto) Eos % (Auto) Baso % (Auto) Neut # (Auto) Lymph # (Auto) [place] # (Auto) Eos # (Auto) Baso # (Auto) Immature Gran % Nucleated RBC % Immature Gran # Nucleated RBCs # Sodium Potassium Chloride Carbon Dioxide Anion Gap BUN Creatinine GFR Calculation BUN/Creatinine Ratio Glucose POC Glucose 175 H 231 H Calculated Osmolality Calcium Phosphorus Magnesium Total Bilirubin AST ALT Alkaline Phosphatase B-Natriuretic Peptide Total Protein Albumin Globulin Albumin/Globulin Ratio
--- NOTE | 2016-09-06 07:46 | XRay Report ---
XR chest 1V portable Indication: COPD. Chest one view: Comparison 09/05/2016. Borderline cardiomegaly, mild pulmonary vascular congestion and bibasilar atelectasis is stable. No new infiltrates are shown. Impression: No significant change. PROCEDURE INTERPRETED AT [facility] DEPARTMENT OF RADIOLOGY Final Report Signed by: Scottie Clay M.D.
--- NOTE | 2016-09-06 08:39 | Event Note ---
Underwent stress teting using Lexiscan protocol due to gait instability. She walked at pace of 1.8 METs and could not advance due to unsteady gait. No arrythmia noted. <1mm ST depression noted inferiorly. No complaints of chest pain noted. Now, to nuclear medication for final scan. Dr. Gillette to read, interpret and advise.
[2016-09-06] MEDS: INSULIN LISPRO 100 UNIT/ML SUBCUT SCH ×4 (09:06→22:07)
[2016-09-06] MEDS: SPIRONOLACTONE 25 MG TABLET PO SCH ×2 (09:45→22:06)
[2016-09-06] MEDS: FUROSEMIDE 40 MG/4 ML VIAL IV SCH (09:45)
[2016-09-06] MEDS: VALSARTAN/HCTZ 160-12.5 MG TABLET PO SCH (09:46)
[2016-09-06] MEDS: CARVEDILOL 12.5 MG TABLET PO SCH ×2 (09:46→22:05)
[2016-09-06] MEDS: amLODIPine 10 MG TABLET PO SCH (09:46)
[2016-09-06] MEDS: ACETAMINOPHEN 325 MG TABLET PO SCH ×2 (09:46→22:06)
[2016-09-06] MEDS: PANTOPRAZOLE 40 MG TABLET PO SCH (09:47)
[2016-09-06] MEDS: ASPIRIN CHEW 81 MG TABLET PO SCH (09:47)
[2016-09-06] MEDS: traMADol 50 MG TABLET PO SCH ×2 (09:48→22:05)
[2016-09-06] MEDS: metFORMIN 500 MG TABLET PO SCH ×2 (09:48→10:00)
[2016-09-06] MEDS: OMEGA 3 ACID ETHYL ESTERS 1 GM CAPSULE PO SCH ×2 (09:49→22:06)
[2016-09-06] MEDS: GABAPENTIN 100 MG CAPSULE PO SCH ×3 (09:53→21:25)
--- NOTE | 2016-09-06 13:02 | Nuclear Medicine Report ---
LEXISCAN CARDIOLITE DATE: 09/06/2016 INDICATION: Chest discomfort PROCEDURE PERFORMED: The patient underwent Lexiscan Cardiolite per protocol. Ten mCi Technetium 99 were injected for rest imaging. Subsequently, the patient received Lexiscan 3.4 mg IV followed by 30 mCi Technetium-99 for stress imaging. ECG interpretation was supervised and provided by mary kay Yancey and reviewed by me. The patient had resting ST depressions in the inferior leads that w ere unchanged with stress, isolated premature atrial contraction was noted. SPECT images were obtained in the short axis, horizontal and vertical long axis with gating. Ejecti on fraction is 61%. End-diastolic volume 118 mL, end-systolic volume 46 mL, stroke volume is 72 mL. At rest, there is small extent, mild intensity perfusion defect noted in the anteroapical region. W ith stress imaging, the same defect persists but is improved slightly to be less intense. IMPRESSION: 1. NORMAL LEFT VENTRICULAR SYSTOLIC FUNCTION. 2. VERY SUBTLE, MILD, SMALL RESTING PERFUSION DEFECTS THAT PERSIST WITH STRESS BUT OVERALL ARE IMPR SPEEDY. THESE ARE SUSPECTED TO BE SECONDARY TO ARTIFACTUAL ATTENUATION. NO EVIDENCE OF REVERSIBLE IS CHEMIA IS IDENTIFIED. Procedure performed and interpreted at [facility] Department of Radiology.
--- NOTE | 2016-09-06 14:03 | Hospitalist Progress Note ---
Assessment and Plan (1) Atypical chest pain Status: Acute Assessment and plan: Patient has multiple risk factors for CAD. Cardiac enzymes are negative. Stress test was negative.She will outpatient GI evaluation moreso to check on her hiatal hernia.D-dimer is elevated, will get a VQ scan, dopplers of the legs were negative Plan VQ scan Current Visit: Yes (2) DM2 (diabetes mellitus, type 2) Status: Chronic Assessment and plan: will hold Metformin 500mg bid due to RF and start Lantus 10units qhs, follow response. HbA1c level - 9.9, continue to monitor closely DM teaching Current Visit: Yes Qualifiers: Diabetes mellitus complication status: without complication Diabetes mellitus regional intermodal truck driver insulin use: with detention use Qualified Code(s): E11.9 - Type 2 diabetes mellitus without complications; Z79.4 - custodial (current) use of insulin (3) Uncontrolled hypertension Status: Chronic Assessment and plan: better controlled,but will have to hold valsartan/hctz for now due to RF.Will start hydralazine 25bid instead and follow response Current Visit: Yes (4) Pulmonary edema Status: Acute Assessment and plan: 09/02/2016 Chest x-ray on 09/02 was consistent with pulmonary edema.Continue with diuretics , repeat CXR in am. 09/07/2016 -CXR today showed no new infiltrates -will start backing off the Lasix, Cr level is trending upwards Current Visit: Yes Qualifiers: Chronicity: acute Qualified Code(s): J81.0 - Acute pulmonary edema (5) Dyslipidemia Status: Chronic Assessment and plan: continue with statin and fish oil Current Visit: Yes (6) Noncompliance Status: Chronic Assessment and plan: Has been out of medications x 2 months. Continue to in house counsel nurse case manager consult for possible help Current Visit: Yes (7) ARF (acute renal failure) Status: Acute Assessment and plan: we will start backing offf the lasix rehydrate gently hold metformin, Valsrtan, HCTZ bmp in am avoid Nephrotoxics renally dose meds Current Visit: Yes (8) Elevated d-dimer Status: Acute Assessment and plan: with atypical CP r/o PE -will increase dose of Lovenox while waiting for VQ scan -Unfortunately patient cannot have a VQ scan till Tuesday due to stress test that was done today -doppler USS -negative for DVT Current Visit: Yes (9) Leg pain Status: Acute Assessment and plan: It sounds neuropathic continue wtih gabapentin Current Visit: Yes Hospitalist: Subjective Interval history: She complains of what sounds like neuropathic pain in her left leg.Doppler showed no evidence of DVT.She was also concerned about her hernia.She had a stress test today and results are pending. Exam - Constitutional Vitals: Period Temp Pulse Resp BP Sys/Moore Pulse Ox Last 24 Hr 97.3 F-98.7 F 57-72 18-20 81-151/48-72 92-99 General appearance: no acute distress - Head Head exam: Present: normal inspection - Respiratory Respiratory exam: Present: clear to auscultation bilaterally - Cardiovascular Cardiovascular exam: Present: regular rate and rhythm - GI/Abdominal GI/Abdominal exam: Present: normal bowel sounds - Extremities Exam Extremities exam: Present: normal inspection Results - Labs CBC & BMP: 09/06/16 04:57 09/06/16 04:57 Lab Results: I have reviewed the past 24 hour labs Quality Measures - VTE Deep Vein Thrombosis/Pulmonary Embolism Present on Admission: No Specialty Discharge - Follow Up or Referrals Follow up with: [facility] [Other] (In about 3-6 weeks, to follow-up on treatment of hypertensive heart disease, hypertension, multiple risk factors) Javier Barajas MD [Physician] - (No scheduled follow-up with me. She will follow-up with her new PCP at the [facility].)
[2016-09-06] MEDS: ENOXAPARIN 100 MG/ML SYRINGE SUBCUT SCH (14:49)
[2016-09-06] MEDS: SODIUM CHLORIDE 0.45% 1,000 ML IV SCH (14:49)
[2016-09-06] MEDS: FUROSEMIDE 20 MG/2 ML VIAL IV SCH (16:01)
--- NOTE | 2016-09-06 16:21 | Event Note ---
Nuclear stress test images reviewed, no clear evidence of reversible ischemia. Back and visited with the patient and she does not have any symptoms consistent with acute coronary syndrome currently. We will sign off. Please feel free to call us with any other active cardiac issues.
[2016-09-06] MEDS: LACTULOSE 20 GM/30 ML UDCUP PO PRN ×2 (17:50→22:14)
[2016-09-06] MEDS: PRAVASTATIN 40 MG TABLET PO SCH (22:06)
[2016-09-06] MEDS: hydrALAZINE 25 MG TABLET PO SCH (22:06)
[2016-09-06] MEDS: INSULIN GLARGINE 100 UNIT/ML SUBCUT SCH (22:07)
[2016-09-07 03:26] LABS: Basophils % 0.2 % (0.0-0.8); Eosinophils # 0.1 10*3/uL (0.0-0.87); Eosinophils % 1.4 % (0.00-10.9); Hemoglobin 10.7 GM/DL (12.0-16.0); Immature Granulocytes % 0.4 %; Immature Granulocytes Absolute 0.02 #; Lymphocytes # 2.1 10*3/uL (1.4-4.0); Lymphocytes % 41.4 % (21.3-54.2); Mean Corpuscular HGB Conc 32.4 GM/DL (32-36); Mean Corpuscular Hemoglobin 30 PG (27-34); Mean Corpuscular Volume 91.7 FL (87-102); Mean Platelet Volume 11.4 FL (9.6-12.0); Monocytes # 0.5 10*3/uL (0.11-0.8); Monocytes % 8.9 % (1.7-12.7); Neutrophils # 2.4 10*3/uL (1.4-7.4); Neutrophils % 47.7 % (38.7-73.9); Platelet Count 186 T/CUMM (130-400); Red Cell Distribution Width 13.9 % (9.3-17.3); White Blood Count 5.1 T/CUMM (4-12)
[2016-09-07 03:59] LABS: Potassium 3.8 MMOL/L (3.5-5.1)
[2016-09-07] MEDS ORDERED: REGADENOSON 0.4 MG/5 ML SYRINGE IV ONE (05:59)
[2016-09-07] MEDS: SPIRONOLACTONE 25 MG TABLET PO SCH ×2 (08:34→21:08)
[2016-09-07] MEDS: amLODIPine 10 MG TABLET PO SCH (08:36)
[2016-09-07] MEDS: ASPIRIN CHEW 81 MG TABLET PO SCH (08:37)
[2016-09-07] MEDS: FUROSEMIDE 20 MG/2 ML VIAL IV SCH (08:37)
[2016-09-07] MEDS: GABAPENTIN 100 MG CAPSULE PO SCH ×3 (08:38→21:10)
[2016-09-07] MEDS: PANTOPRAZOLE 40 MG TABLET PO SCH (08:38)
[2016-09-07] MEDS: CARVEDILOL 12.5 MG TABLET PO SCH ×2 (08:38→21:09)
[2016-09-07] MEDS: hydrALAZINE 25 MG TABLET PO SCH ×2 (08:38→21:09)
[2016-09-07] MEDS: ACETAMINOPHEN 325 MG TABLET PO SCH ×2 (08:38→21:11)
[2016-09-07] MEDS: traMADol 50 MG TABLET PO SCH ×2 (08:39→21:11)
[2016-09-07] MEDS: INSULIN LISPRO 100 UNIT/ML SUBCUT SCH ×4 (08:46→21:07)
[2016-09-07] MEDS: OMEGA 3 ACID ETHYL ESTERS 1 GM CAPSULE PO SCH ×2 (09:27→21:10)
[2016-09-07] MEDS: SODIUM CHLORIDE 0.45% 1,000 ML IV SCH (11:26)
--- NOTE | 2016-09-07 13:44 | Hospitalist Progress Note ---
Assessment and Plan (1) Atypical chest pain Status: Acute Assessment and plan: Patient has multiple risk factors for CAD. Cardiac enzymes are negative. Stress test was negative. She will get an outpatient GI evaluation moreso to check on her hiatal hernia. D-dimer is elevated, she cannot get a VQ scan till tomorrow due to recent stress test, dopplers of the legs were negative Plan VQ scan in am. Possible dc afterwards Current Visit: Yes (2) DM2 (diabetes mellitus, type 2) Status: Chronic Assessment and plan: continue to hold Metformin 500mg bid due to RF continue Lantus 10units qhs, HbA1c level - 9.9, continue to monitor closely DM teaching Current Visit: Yes Qualifiers: Diabetes mellitus complication status: without complication Diabetes mellitus shelter insulin use: with shelter use Qualified Code(s): E11.9 - Type 2 diabetes mellitus without complications; Z79.4 - exterminator helper (current) use of insulin (3) Uncontrolled hypertension Status: Chronic Assessment and plan: better controlled,continue to hold valsartan/hctz for now due to RF. Continue current regime Current Visit: Yes (4) Pulmonary edema Status: Acute Assessment and plan: 09/02/2016 Chest x-ray on 09/02 was consistent with pulmonary edema.Continue with diuretics , repeat CXR in am. 09/07/2016 -CXR today showed no new infiltrates Plan Switch Lasix to po Current Visit: Yes Qualifiers: Chronicity: acute Qualified Code(s): J81.0 - Acute pulmonary edema (5) Dyslipidemia Status: Chronic Assessment and plan: continue with statin and fish oil Current Visit: Yes (6) Noncompliance Status: Chronic Assessment and plan: Has been out of medications x 2 months. Continue to family life counselor outpatient case manager consult for possible help Current Visit: Yes (7) ARF (acute renal failure) Status: Acute Assessment and plan: fairly stable dc IVF continue to hold metformin, Valsrtan, HCTZ bmp in am avoid Nephrotoxics renally dose meds Current Visit: Yes (8) Elevated d-dimer Status: Acute Assessment and plan: with atypical CP r/o PE -will increase dose of Lovenox while waiting for VQ scan -Unfortunately patient cannot have a VQ scan till tomorrow due to recent stress test -doppler USS -negative for DVT Current Visit: Yes (9) Leg pain Status: Acute Assessment and plan: It sounds neuropathic-improving continue with gabapentin. Dopplers negative for DVT Current Visit: Yes Hospitalist: Subjective Interval history: Patient looks better today. Stress test showed no clear evidence of reversible ischemia. She has no chest pain, SOB and she feels better. We are waiting for her to get a VQ scan tomorrow to r/o PE then she can be dcd. Exam - Constitutional Vitals: Period Temp Pulse Resp BP Sys/Moore Pulse Ox Last 24 Hr 97.0 F-98.8 F 18-71 18-20 108-166/55-68 95-100 General appearance: no acute distress - Head Head exam: Present: normal inspection - Neck Neck exam: Present: normal inspection - Respiratory Respiratory exam: Present: clear to auscultation bilaterally - Cardiovascular Cardiovascular exam: Present: regular rate and rhythm - GI/Abdominal GI/Abdominal exam: Present: normal bowel sounds - Back Exam Back exam: Present: normal inspection Results - Labs CBC & BMP: 09/07/16 03:01 09/07/16 03:01 Lab Results: I have reviewed the past 24 hour labs Quality Measures - VTE Deep Vein Thrombosis/Pulmonary Embolism Present on Admission: No Specialty Discharge - Follow Up or Referrals Follow up with: [facility] [Other] (In about 3-6 weeks, to follow-up on treatment of hypertensive heart disease, hypertension, multiple risk factors) Javier Barajas MD [Physician] - (No scheduled follow-up with me. She will follow-up with her new PCP at the [facility].)
[2016-09-07] MEDS: ENOXAPARIN 100 MG/ML SYRINGE SUBCUT SCH (16:25)
[2016-09-07] MEDS: INSULIN GLARGINE 100 UNIT/ML SUBCUT SCH (21:07)
[2016-09-07] MEDS: PRAVASTATIN 40 MG TABLET PO SCH (21:10)
[2016-09-08 05:58] LABS: Basophils % 0.2 % (0.0-0.8); Eosinophils # 0.1 10*3/uL (0.0-0.87); Eosinophils % 1.7 % (0.00-10.9); Hematocrit 33.6 VOL% (35.7-47.0); Hemoglobin 11.1 GM/DL (12.0-16.0); Immature Granulocytes % 0.2 %; Immature Granulocytes Absolute 0.01 #; Lymphocytes # 2.2 10*3/uL (1.4-4.0); Lymphocytes % 36.8 % (21.3-54.2); Mean Corpuscular Hemoglobin 30 PG (27-34); Mean Corpuscular Volume 90.8 FL (87-102); Mean Platelet Volume 10.9 FL (9.6-12.0); Monocytes # 0.4 10*3/uL (0.11-0.8); Monocytes % 6.7 % (1.7-12.7); Neutrophils # 3.2 10*3/uL (1.4-7.4); Neutrophils % 54.4 % (38.7-73.9); Platelet Count 204 T/CUMM (130-400); Red Cell Distribution Width 13.8 % (9.3-17.3); White Blood Count 5.9 T/CUMM (4-12)
[2016-09-08 06:28] LABS: Calcium 8.6 MG/DL (8.5-10.1); Osmolality,Calculated 301.7 MOS/KG (273-304); Potassium 3.8 MMOL/L (3.5-5.1)
--- NOTE | 2016-09-08 08:24 | Nuclear Medicine Report ---
NM lung scan vent and per Indication: Chest pain. VENTILATION/PERFUSION LUNG SCAN: Planar imaging of the lungs was obtained after the IV administration of 5 mCi technetium 99m labeled MAA, and aerosol administration of 40 mCi technetium 99m labeled DTPA. Comparison: None. Findings: Perfusion portion of the examination is normal, without perfusion defects present. Chest x-ray shows no concerning findings that would alter the study. Impression: Normal VQ scan. PROCEDURE INTERPRETED AT [facility] DEPARTMENT OF RADIOLOGY Final Report Signed by: Scottie Clay M.D.
[2016-09-08] MEDS ORDERED: FUROSEMIDE 20 MG TABLET PO SCH (09:00)
[2016-09-08] MEDS: ASPIRIN CHEW 81 MG TABLET PO SCH (09:01)
[2016-09-08] MEDS: hydrALAZINE 25 MG TABLET PO SCH (09:01)
[2016-09-08] MEDS: amLODIPine 10 MG TABLET PO SCH (09:01)
[2016-09-08] MEDS: CARVEDILOL 12.5 MG TABLET PO SCH (09:01)
[2016-09-08] MEDS: PANTOPRAZOLE 40 MG TABLET PO SCH (09:01)
[2016-09-08] MEDS: OMEGA 3 ACID ETHYL ESTERS 1 GM CAPSULE PO SCH (09:01)
[2016-09-08] MEDS: GABAPENTIN 100 MG CAPSULE PO SCH (09:01)
[2016-09-08] MEDS: ACETAMINOPHEN 325 MG TABLET PO SCH (09:01)
[2016-09-08] MEDS: traMADol 50 MG TABLET PO SCH (09:02)
[2016-09-08] MEDS: SPIRONOLACTONE 25 MG TABLET PO SCH (09:02)
[2016-09-08] MEDS: INSULIN LISPRO 100 UNIT/ML SUBCUT SCH ×2 (09:14→12:22)
--- NOTE | 2016-09-08 13:08 | XRay Report ---
XR chest post lung scan Indication: Chest pain. Chest 2 views: Comparison 2 days ago shows stable cardiomegaly but worsening diffuse pulmonary edema. There is increased density within the infrahilar lungs bilaterally are also present but likely related to the edema mentioned above. Pleural spaces appear clear. Impression: CHF decompensation. PROCEDURE INTERPRETED AT [facility] DEPARTMENT OF RADIOLOGY Final Report Signed by: Scottie Clay M.D.
--- NOTE | 2016-09-08 13:38 | Discharge Summary ---
Hospital Course - Hospital Course Hospital Course: Ms. Kerr is a 61 year old female with a history of HTN, DM who presents to the ER with chest pain, SOB. Upon arrival, CXR showed pulmonary edema and moderate cardiomegaly.Influenza A and B tests were negative.She was admitted to telemetry,cardiac enzymes were negative. Cardiology was consulted. She was diuresed, had a negative stress test. Her metformin, valsartan HCTZ were discontinued due to renal failure.D-dimers were high but doppler USS of legs were negative, VQ scan was also negative. Echo revealed 3+ LVH, normal LVEF.Her lasix dose was subsequently reduced and she was rehydrated gently and her creatinine improved.Her blood sugar was controlled with Lantus and sliding scale insulin. She will need outpatient sleep study.She also received some statin and fish oil to control her cholesterol.Today she feels great, vital are stable and she is ready to be dcd.She will follow with Cardiology and PCP as scheduled. Time spent: 45mins - Time spent with patient Time with patient DS: Greater than 30 minutes Diagnosis - Discharge Diagnosis (1) Atypical chest pain Status: Acute (2) DM2 (diabetes mellitus, type 2) Status: Chronic (3) Uncontrolled hypertension Status: Chronic (4) Pulmonary edema Status: Acute (5) Dyslipidemia Status: Chronic (6) Noncompliance Status: Chronic (7) ARF (acute renal failure) Status: Acute (8) Elevated d-dimer Status: Acute (9) Leg pain Status: Acute Specialty Discharge - Follow Up or Referrals Follow up with: [facility], [facility] [Other] (In about 3-6 weeks, to follow-up on treatment of hypertensive heart disease, hypertension, multiple risk factors) Javier Barajas MD [Physician] - (No scheduled follow-up with ne. She will follow-up with her new PCP at the [facility].) Discharge Plan - Discharge Data Disposition: Disch To Home/Self Care Condition at Discharge: Stable Discharge Diet: diabetic diet Activity: resume usual activities as tolerated - Discharge Medications New Acetaminophen Tab [Tylenol Tab] 325 mg PO BID tablet Alum/Mag/Simeth Max Str Liquid [Mylanta Max Strength Liquid] 30 ml PO Q4H PRN #0 PRN Reason: Dyspepsia HYDROcodone/ACETAMIN 10-325 [[place] 10-325] 1 tablet PO Q6H PRN #20 tablet PRN Reason: Pain Moderate (4-7) amLODIPine [Norvasc] 10 mg PO DAILY #30 tablet Aspirin Chew Tab 324 mg PO DAILY #30 tablet Carvedilol [Coreg] 12.5 mg PO BID #60 tablet Furosemide Tab [Lasix Tab] 20 mg PO DAILY #30 tablet Gabapentin Cap/Tab [Neurontin Cap/Tab] 100 mg PO TID #90 capsule Insulin Glargine [Lantus] 20 unit SUBCUT BEDTIME #7 unit Model 3 Acid Ethyl Esters [Lovaza] 1 gm PO BID #30 capsule Pantoprazole Tab [Protonix Tab] 40 mg PO DAILY #30 tablet Pravastatin [Pravachol] 40 mg PO BEDTIME #30 tablet Spironolactone [Aldactone] 12.5 mg PO BID #60 tablet hydrALAZINE TAB [Apresoline Tab] 25 mg PO BID #60 tablet traMADol TAB [Ultram] 50 mg PO BID tablet Discontinued Lisinopril/Hydrochlorothiazide [Lisinopril-Hctz 10-12.5 mg Tab] 1 tablet .ROUTE DAILY Insulin Lispro Prot/Lisp 75/25 [HumaLOG Mix 75/25] 50 units SUBCUT BID - Follow Up or Referral Follow Up: [facility], [facility] [Other] (In about 3-6 weeks, to follow-up on treatment of hypertensive heart disease, hypertension, multiple risk factors) Javier Barajas MD [Physician] - (No scheduled follow-up with me. She will follow-up with her new PCP at the [facility].) - Forms/Instructions Additional Discharge Instructions: Follow PCP in 1week. Outpatient sleep study.Follow Cardiology as scheduled. Exam - Constitutional Vitals: Period Temp Pulse Resp BP Sys/Moore Pulse Ox Last 24 Hr 96.6 F-98.6 F 57-88 18-20 127-166/65-92 93-97 General appearance: no acute distress - Head Head exam: Present: normal inspection - Respiratory Respiratory exam: Present: clear to auscultation bilaterally - Cardiovascular Cardiovascular exam: Present: regular rate and rhythm - GI/Abdominal GI/Abdominal exam: Present: normal bowel sounds - Extremities Exam Extremities exam: Present: normal inspection Discharge Results Labs on day of discharge: Labs from last 24 hours 09/08/16 09/08/16 09/08/16 11:36 08:37 05:43 WBC RBC Hgb Hct MCV MCH MCHC RDW Plt Count MPV Neut % (Auto) Lymph % (Auto) [place] % (Auto) Eos % (Auto) Baso % (Auto) Neut # (Auto) Lymph # (Auto) [place] # (Auto) Eos # (Auto) Baso # (Auto) Immature Gran % Nucleated RBC % Immature Gran # Nucleated RBCs # Sodium 145 Potassium 3.8 Chloride 105 Carbon Dioxide 31 Anion Gap 12.8 BUN 29 H Creatinine 1.40 H GFR Calculation 54 BUN/Creatinine Ratio 20.00 Glucose 239 H POC Glucose 202 H 202 H Calculated Osmolality 301.7 Calcium 8.6 09/08/16 09/07/16 09/07/16 05:43 20:24 16:17 WBC 5.9 RBC 3.70 L Hgb 11.1 L Hct 33.6 L MCV 90.8 MCH 30 MCHC 33.0 RDW 13.8 Plt Count 204 MPV 10.9 Neut % (Auto) 54.4 Lymph % (Auto) 36.8 [place] % (Auto) 6.7 Eos % (Auto) 1.7 Baso % (Auto) 0.2 Neut # (Auto) 3.2 Lymph # (Auto) 2.2 [place] # (Auto) 0.4 Eos # (Auto) 0.1 Baso # (Auto) 0.0 Immature Gran % 0.2 Nucleated RBC % 0.0 Immature Gran # 0.01 Nucleated RBCs # 0.00 Sodium Potassium Chloride Carbon Dioxide Anion Gap BUN Creatinine GFR Calculation BUN/Creatinine Ratio Glucose POC Glucose 222 H 255 H Calculated Osmolality Calcium DS: Provider Date of admission: 09/03/16 00:50 Primary care physician: . No PCP Attending physician on admission: Caridad Chaudhary MD Consults: 09/04/16 14:37 Consult to [facility], Educator [CONS] Routine Reason for Share Holder: Diabetes Education 09/04/16 14:53 Consult to Case Mgmt/Social Srvs [CONS] Routine Reason for Case Mgmt/Social Srvs: Discharge Planning Consult Comment: patient may need help with prescription drugs Discharging clinician: Caridad Chaudhary MD
[2016-09-08 17:17] VITALS: BP 149/67
== END 2016-09-08 18:20 | disposition home or self-care (01) | DRG 292 ==
LOC: N.ED 21:29 → N.EDINP 09-03 01:26 → N.TELEN 09-03 01:39
PROVIDERS: ADMIT Internal Medicine; ATTEND Internal Medicine